=== PATIENT | female | born 1980 | race Caucasian/White ===

== ENCOUNTER 2017-10-19 03:53 | Emergency (ER) | payer OTHER ==
[~2017-10-19] VITALS: Ht 160 cm; Wt 99.8 kg
[~2017-10-19 03:53] MED LIST: FISH OIL 1,001000 M2 PO; IBUPROFEN 800800 M1 PO; NORCO 5-325 TA1 EACH PO; VITAMIN C100 MG PO; ZOFRAN ODT4 MG PO
[2017-10-19] MEDS ORDERED: KEFLEX500 M1 PO (04:20)
[2017-10-19] MEDS ORDERED: PHENAZOPYRIDIN200 M2 PO (04:20)
[2017-10-19 04:25] LABS: URINE BILIRUBIN NEGATIVE (Negative); URINE BLOOD 3+ (Negative); URINE GLUCOSE-RANDOM TRACE (Negative); URINE KETONES 1+ (Negative); URINE PROTEIN 3+ (Negative)
[2017-10-19 04:27] LABS: URINE CLARITY CLEAR; URINE COLOR RED
[2017-10-19 04:39] LABS: URINE LEUKOCYTES-REFLEX 2+ (Negative); URINE NITRITE-REFLEX POSITIVE (Negative)
[2017-10-19 04:45] LABS: CASTS None Seen /LPF (None Seen); SQUAMOUS NONE SEEN /LPF (0-3)
[2017-10-19 04:46] LABS: BACTERIA-REFLEX None Seen /HPF (None Seen); CRYSTALS None Seen /LPF (None Seen); URINE RBC >20 Many /HPF (0-2); URINE WBC-REFLEX >25 Many /HPF (0-5)
[2017-10-19 04:54] VITALS: BP 138/95
== END 2017-10-19 04:57 | disposition home or self-care (01) ==
LOC: M.ERS 03:53
PROVIDERS: Emergency Medicine Emergency Medical Services
DX: N39.0 Urinary tract infection, site not specified (principal)